=== PATIENT | female | born 1970 | race Two or more races ===

== ENCOUNTER 2024-09-11 08:20 | Inpatient (IN) | payer OTHER ==
[2024-09-11] MEDS ORDERED: LOPERAMIDE HCL 2 MG CAPSULE PO PRN (09:34)
[2024-09-11] MEDS ORDERED: BENZONATATE 200 MG CAPSULE PO PRN (09:34)
[2024-09-11] MEDS ORDERED: POLYETHYLENE GLYCOL (HEALTHYLAX) 3350 17 GM PACKET PO PRN (09:34)
[2024-09-11] MEDS ORDERED: guaiFENesin 600 MG TABLET.ER (FP) PO PRN (09:34)
[2024-09-11] MEDS ORDERED: NALOXONE (NARCAN) HCL 4 MG/0.1 ML SPRAY NS PRN (09:34)
[2024-09-11 09:38] VITALS: BMI 22.2
[2024-09-11] MEDS ORDERED: PRENATAL VITAMINS W/ FOLIC ACID TABLET (FP) PO ONE (10:33)
[2024-09-11] MEDS: PRENATAL VITAMINS W/ FOLIC ACID TABLET (FP) PO SCH (10:34)
[2024-09-11] MEDS: IBUPROFEN 600 MG TABLET (FP) PO PRN (11:55)
[2024-09-11 19:40] LABS: URINE APPEARANCE CLEAR; URINE BILIRUBIN NEGATIVE (NEGATIVE); URINE COLOR YELLOW; URINE GLUCOSE (UA) NEGATIVE (NEGATIVE); URINE KETONE NEGATIVE (NEGATIVE); URINE LEUK ESTERASE NEGATIVE (NEGATIVE); URINE NITRITE NEGATIVE (NEGATIVE); URINE PROTEIN NEGATIVE (NEGATIVE); URINE UROBILINOGEN 0.2 mg/dL (0.2-1.0)
[2024-09-11] MEDS: QUEtiapine FUMARATE 100 MG TABLET (FP) PO SCH (21:20)
[2024-09-11] MEDS: THIAMINE 100 MG TABLET PO SCH (21:20)
[2024-09-11] MEDS: MIRTAZAPINE 15 MG TABLET (FP) PO SCH (21:20)
[2024-09-11] MEDS: MELATONIN 5 MG TABLETS PO SCH (21:20)
[2024-09-11] MEDS: GABAPENTIN 300 MG CAPSULE PO SCH (21:20)
[2024-09-12] MEDS: ACETAMINOPHEN 325 MG TABLET (FP) PO PRN (07:23)
[2024-09-12] MEDS: NICOTINE POLACRILEX 4 MG GUM BUC PRN (10:34)
[2024-09-12 12:47] LABS: MCHC 30.6 g/dl (32.2-35.5); MEAN CELL VOLUME 95.6 fl (79.4-94.8); MEAN PLT VOLUME 10.1 fl (9.4-12.3); RDW 14.1 % (12.3-16.6)
[2024-09-12 12:56] LABS: CO2 30.0 mmol/L (21-32); GLUCOSE,RANDOM 82.0 mg/dL (74-106)
[2024-09-12 12:59] LABS: CREATININE 0.6 mg/dL (0.55-1.3); SGOT/AST 39.0 U/L (15-37); SGPT/ALT 48.0 U/L (13-61)
[2024-09-12 13:01] LABS: TOT PROT 5.6 g/dl (6.4-8.2)
[2024-09-12 13:03] LABS: ALK PHOS 91.0 U/L (45-117)
[2024-09-12 13:55] LABS: SYPHILIS W/ RPR CONF NON-REACTIVE (NONREACTIVE)
[2024-09-12] MEDS: hydrOXYzine PAMOATE 25 MG CAPSULE (FP) PO PRN (17:43)
[2024-09-13 13:06] LABS: HCV DIAGNOSTIC IN-HOUSE W/RFLX REACTIVE (NONREACTIVE)
[2024-09-15] MEDS: MELATONIN 5 MG TABLETS PO SCH (21:21)
[2024-09-16] MEDS: SUVOREXANT 10 MG TABLET PO PRN (21:22)
[2024-09-19] MEDS: MAG HYDROX/AL HYDROX/SIMETH 30 ML UNIT-DOSE CUP PO PRN (07:50)
[2024-09-19] MEDS: SUVOREXANT 15 MG TABLET PO PRN (21:31)
[2024-09-21] MEDS: IBUPROFEN 400 MG TABLET (FP) PO PRN (21:26)
[2024-09-23] MEDS: MAGNESIUM HYDROX 2400MG/30ML ORAL SUSPENSION 30 ML CUP PO PRN (06:17)
[2024-09-24] MEDS: TOBRAMYCIN 0.3% OPHTH SOLN 5 ML BOTTLE OS PRN (09:46)
[2024-09-24] MEDS: BENZOCAINE/MENTHOL (CHLORASEPTIC ) LOZENGE MM PRN (14:09)
[2024-09-25] MEDS: BACLOFEN 10 MG TABLET (FP) PO SCH (11:26)
[2024-09-25] MEDS: ACAMPROSATE CALCIUM 333 MG TABLET.DR PO SCH (14:46)
[2024-09-25] MEDS: SUVOREXANT 10 MG TABLET PO PRN (21:34)
[2024-09-27] MEDS: SUVOREXANT 10 MG TABLET PO SCH (21:13)
[2024-09-29 06:46] VITALS: RESP 18; TEMP 97.3
[2024-09-29 09:12] VITALS: BP 146/62; PULSE 74
[2024-09-29] MEDS ORDERED: SUVOREXANT 20 MG TABLET PO SCH (22:00)
== END 2024-09-29 10:55 | disposition home or self-care (01) | DRG 772 ==
LOC: YASAS 08:20 → Y3NR 10:39 → Y5N 09-13 11:20
PROVIDERS: ADMIT Allergy & Immunology; ATTEND Allergy & Immunology
PROC: HZ42ZZZ Group Counseling for Substance Abuse Treatment, Cognitive-Behavioral (ICD-10-PCS; principal; 2024-09-11)
DX: F11.20 Opioid dependence, uncomplicated (principal); F14.20 Cocaine dependence, uncomplicated; F10.20 Alcohol dependence, uncomplicated; F43.22 Adjustment disorder with anxiety; F41.9 Anxiety disorder, unspecified; F32.A Depression, unspecified; Z87.891 Personal history of nicotine dependence
CPT/HCPCS: 36415; 80053; 80305; 80307; 81003; 81025; 84132; 85027; 86780; 86803; 87522; 87637-QW; 87811; 93005; 93010; J0475